=== PATIENT | female | born 1995 | race Two or more races ===

== ENCOUNTER 2022-11-25 09:57 | Emergency (ER) | payer MEDICAID, OTHER ==
[~2022-11-25] VITALS: Ht 167.6 cm; Wt 91.0 kg
[2022-11-25 10:24] LABS: Basophils # (auto) 0 10 ^3/uL (0-0.2); Basophils % (auto) 0.3 % (0.0-2.0); Eosinophils # (auto) 0.2 10 ^3/uL (0-0.8); Eosinophils % (auto) 2.3 % (0.0-7.0); Hematocrit 40.7 % (36.0-46.0); Hemoglobin 13.6 g/dL (12.2-16.2); Lymphocytes # (auto) 2.9 10 ^3/uL (0.4-5.4); Lymphocytes % (auto) 27.4 % (10.0-50.0); Mean Corpuscular Hemoglobin 28.2 pg (28.0-32.0); Mean Corpuscular Hgb Conc. 33.5 g/dL (32.0-36.0); Mean Corpuscular Volume 84.2 fL (80.0-100.0); Monocytes # (auto) 0.8 10 ^3/uL (0-1.3); Monocytes % (auto) 7.1 % (0.0-12.0); Neutrophils # (auto) 6.7 10 ^3/uL (1.6-8.6); Neutrophils % (auto) 62.9 % (37.0-80.0); Nucleated Red Blood Cells % 0.1 %; Red Blood Cells 4.84 10^6/uL (4.0-5.20); Red Cell Distribution Width 14.4 % (11.8-14.3); White Blood Cell 10.7 10^3/uL (4.4-10.8)
[2022-11-25 10:53] LABS: Albumin 3.8 g/dL (3.4-5.0); Calcium 8.8 mg/dL (8.5-10.1); Potassium 4.1 mmol/L (3.5-5.1)
[2022-11-25 10:57] LABS: BUN/Creatinine Ratio 13.8 (10.0-20.0); Bilirubin, Total 0.4 mg/dL (0.2-1.0); Total Protein 6.9 g/dL (6.4-8.2)
[2022-11-25 11:09] LABS: Urine Bacteria NONE SEEN /hpf (None Seen); Urine Blood Negative /uL (Negative); Urine Mucus FEW (None Seen); Urine Specific Gravity 1.021 (1.001-1.035); Urine WBC 17 /hpf (0 - 5)
[2022-11-25] MEDS ORDERED: NITR-87 PO (13:20)
[2022-11-25 16:37] VITALS: BP 104/61
== END 2022-11-25 16:40 | disposition home or self-care (01) ==
LOC: ER 09:57
DX: R07.89 Other chest pain (principal); N39.0 Urinary tract infection, site not specified; Z32.02 Encounter for pregnancy test, result negative; Z79.899 Other long term (current) drug therapy
CPT/HCPCS: 36415; 71045; 80053; 81001; 81025; 84443; 84484; 85025; 85379; 93005

== ENCOUNTER 2023-05-16 11:36 | Emergency (ER) | payer SELFPAY ==
[~2023-05-16] VITALS: Ht 167.6 cm; Wt 91.7 kg
[~2023-05-16 11:36] MED LIST: NITR-87 PO
[2023-05-16 13:39] LABS: Urine Bacteria FEW /hpf (None Seen); Urine Blood TRACE /uL (Negative); Urine Clarity HAZY (Clear); Urine Color Yellow (Yellow); Urine Mucus FEW (None Seen); Urine Protein, UAD TRACE (Negative); Urine Specific Gravity 1.029 (1.001-1.035); Urine Urobilinogen Normal (Negative); Urine WBC 15 /hpf (0 - 5); Urine pH 5.5 (5.0-8.0)
[2023-05-16] MEDS ORDERED: BACDST PO (16:09)
[2023-05-16] MEDS ORDERED: IBUP1TAB5 PO (16:09)
[2023-05-16] MEDS ORDERED: LIDO5CRE14 EX (16:09)
[2023-05-16 16:12] VITALS: BP 114/75; PULSE 97; RESP 15; TEMP 98.3; O2SAT 97
== END 2023-05-16 16:14 | disposition home or self-care (01) ==
LOC: ER 11:36
DX: N39.0 Urinary tract infection, site not specified (principal)
CPT/HCPCS: 81001

== ENCOUNTER 2024-02-10 09:24 | Emergency (ER) | payer MEDICAID, OTHER ==
[~2024-02-10] VITALS: Ht 167.6 cm; Wt 98.8 kg
[~2024-02-10 09:24] MED LIST changes: +BACDST PO; +IBUP1TAB5 PO; +LIDO5CRE14 EX
[2024-02-10] MEDS: SILVER SULFADIAZINE 1 % TOPICAL CREAM 50GM TOP ONE (10:12)
[2024-02-10] MEDS ORDERED: CEPH500C PO (10:18)
[2024-02-10 10:20] VITALS: BP 109/67; PULSE 73; RESP 18; TEMP 97.8; O2SAT 98
== END 2024-02-10 10:44 | disposition home or self-care (01) ==
LOC: ER 09:43
DX: T22.212A Burn of second degree of left forearm, initial encounter (principal); T31.0 Burns involving less than 10% of body surface; Z79.899 Other long term (current) drug therapy; X12.XXXA Contact with other hot fluids, initial encounter; Y93.89 Activity, other specified; Y92.89 Other specified places as the place of occurrence of the external cause; Y99.0 Civilian activity done for income or pay
CPT/HCPCS: 16020

== ENCOUNTER 2024-04-30 03:42 | Emergency (ER) | payer MEDICAID, OTHER ==
[~2024-04-30] VITALS: Ht 167.6 cm; Wt 99.8 kg
[~2024-04-30 03:42] MED LIST changes: +CEPH500C PO
[2024-04-30 03:50] VITALS: BP 121/61; PULSE 77; RESP 18; TEMP 98; O2SAT 97
[2024-04-30] MEDS: KETOROLAC TROMETH 60MG/2ML VIAL IM ONE (04:15)
[2024-04-30] MEDS ORDERED: METH4PAK PO (04:46)
== END 2024-04-30 05:11 | disposition home or self-care (01) ==
LOC: ER 03:42
DX: S86.812A Strain of other muscle(s) and tendon(s) at lower leg level, left leg, initial encounter (principal); Z79.899 Other long term (current) drug therapy; X58.XXXA Exposure to other specified factors, initial encounter; Y93.89 Activity, other specified; Y92.89 Other specified places as the place of occurrence of the external cause; Y99.8 Other external cause status
CPT/HCPCS: 73562; 96372; 99283; J1885

== ENCOUNTER 2024-07-31 11:14 | Emergency (ER) | payer MEDICAID ==
[~2024-07-31] VITALS: Ht 167.6 cm; Wt 98.1 kg
[~2024-07-31 11:14] MED LIST changes: +METH4PAK PO
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
[2024-07-31 14:28] VITALS: BP 122/75; PULSE 86; RESP 16; TEMP 98.7; O2SAT 97
== END 2024-07-31 14:31 | disposition home or self-care (01) ==
LOC: ER 11:14
DX: S39.012A Strain of muscle, fascia and tendon of lower back, initial encounter (principal); Z79.1 Long term (current) use of non-steroidal anti-inflammatories (NSAID); Z79.899 Other long term (current) drug therapy; V43.52XA Car driver injured in collision with other type car in traffic accident, initial encounter; Y93.89 Activity, other specified; Y92.410 Unspecified street and highway as the place of occurrence of the external cause; Y99.8 Other external cause status
CPT/HCPCS: 72100

== ENCOUNTER 2025-03-21 20:46 | Emergency (ER) | payer MEDICAID, OTHER ==
[~2025-03-21] VITALS: Ht 167.6 cm; Wt 94.5 kg
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
[2025-03-21] MEDS ORDERED: SILV1CRE82 TOP (23:00)
[2025-03-21] MEDS ORDERED: BAC09TP TOP (23:00)
[2025-03-22] MEDS: BACITRACIN TOP OINT 1 UD PKG TOP ONE ×2 (00:07)
[2025-03-22] MEDS: BACITRACIN-POLYMYXIN B TOPICAL OINT UD TOP ONE (00:07)
[2025-03-22 00:16] VITALS: BP 113/70; TEMP 98.2
[2025-03-22 00:17] VITALS: PULSE 58; RESP 16; O2SAT 98
[2025-03-22] MEDS: KETOROLAC TROMETH 30 MG/ML 1ML VIAL IM ONE (00:20)
== END 2025-03-22 00:24 | disposition home or self-care (01) ==
LOC: ER 20:46
DX: T23.062A Burn of unspecified degree of back of left hand, initial encounter (principal); X58.XXXA Exposure to other specified factors, initial encounter; Y93.89 Activity, other specified; Y92.000 Kitchen of unspecified non-institutional (private) residence as the place of occurrence of the external cause; Y99.8 Other external cause status
CPT/HCPCS: 96372; 99283; J1885